=== PATIENT | male | born 1975 | race Caucasian/White ===

== ENCOUNTER 2019-03-12 09:02 | Outpatient (CLI) | payer OTHER ==
--- NOTE | 2019-03-12 10:47 | ULT ---
THYROID ULTRASOUND HISTORY: Hypothyroidism. The patient is on thyroid medication. TECHNIQUE: Multiplanar johnson-scale and color Doppler images were obtained in a thyroid ultrasound. FINDINGS: There is a well circumscribed, hypoechoic nodule in the right lobe of the thyroid, measuring 1 cm in greatest dimension. This does not demonstrate suspicious calcifications and is wider than tall. No other thyroid nodules are seen. The thyroid lobes measure 1.8 and 1.4 cm in length, on the right and left, respectively. IMPRESSION: Right thyroid nodule as above. This is a TI-RADS category 4 lesion. This lesion is borderline for f candice, as lesions greater than or equal to 1 cm should be followed at 1 years, 2 years, 3 years, an d 5 years. POS: ODALYS
== END 2019-03-12 09:03 | disposition home or self-care (01) ==
LOC: SCSULT 09:02
PROVIDERS: ATTEND Family Medicine
DX: E03.9 Hypothyroidism, unspecified (principal); E04.1 Nontoxic single thyroid nodule
CPT/HCPCS: 76536